=== PATIENT | male | born 1965 | race Caucasian/White ===

== ENCOUNTER → 2020-09-04 12:46 | Outpatient (CLI) | payer OTHER, SELFPAY ==
--- NOTE | 2020-09-04 12:54 | XR_ITS ---
PROCEDURE: XR WRIST RT MIN 3V CLINICAL INDICATION: bilateral wrist pain COMPARISON: No exams were available for comparison FINDINGS: No fracture or dislocation. No lytic or blastic change. There is normal mineralization. The joint spaces are well-preserved. No significant degenerative/arthritic changes. No erosive changes evident. Other findings:None. IMPRESSION: No acute findings. Dictated by: Galina Mireles 09/04/2020 14:55 Galina Mireles in [place] 09/04/2020 14:55
--- NOTE | 2020-09-04 12:54 | XR_ITS ---
PROCEDURE: XR WRIST LT MIN 3V CLINICAL INDICATION: bilateral wrist pain COMPARISON: No exams were available for comparison FINDINGS: No fracture or dislocation. No lytic or blastic change. There is normal mineralization. The joint spaces are well-preserved. No significant degenerative/arthritic changes. No erosive changes evident. Other findings:None. IMPRESSION: No acute findings. Dictated by: Galina Mireles 09/04/2020 14:54 Galina Mireles in [place] 09/04/2020 14:54
--- NOTE | 2020-09-04 14:14 | XR_ITS ---
PROCEDURE: XR CERVICAL SPINE 3V CLINICAL INDICATION: Shoulder/neck pain COMPARISON: No exams were available for comparison FINDINGS: Minor multilevel degenerative changes of the cervical spine, worse at C5-6 and C6-7 levels. Minor multilevel facet joint arthropathy. Vertebral body heights and alignment are maintained. The C1-2 alignment is within normal limits. Prevertebral soft tissues and the visualized lung apices are clear. IMPRESSION: No acute fractures or traumatic subluxation. Dictated by: Galina Mireles 09/04/2020 15:17 Galina Mireles in [place] 09/04/2020 15:17
== END ==
PROVIDERS: Visit Provider Orthopaedic Surgery
DX: M25.532 Pain in left wrist (principal); M25.531 Pain in right wrist; R20.2 Paresthesia of skin; M25.511 Pain in right shoulder; M25.512 Pain in left shoulder
CPT/HCPCS: 72040; 73110

== ENCOUNTER → 2020-09-28 10:22 | Outpatient (CLI) | payer OTHER, SELFPAY ==
[2020-09-28 11:05] LABS: Basophils % 0.4 % (0.1-2.0); Eosinophils # 0.2 K/mm3 (0.0-0.4); Eosinophils % 2.7 % (0.1-12.0); Hematocrit 46.5 % (42.0-52.0); Hemoglobin 15.5 g/dL (14.1-18.0); Lymphocytes # 1.8 K/mm3 (0.7-4.5); Lymphocytes % 21.4 % (10-50); Mean Corpuscular HGB Conc 33.4 g/dL (31.8-35.4); Mean Corpuscular Hemoglobin 28.9 pg (27.0-31.2); Mean Corpuscular Volume 86.6 fl (80-94); Mean Platelet Volume 7.7 fl (7.4-10.4); Monocytes # 0.5 K/mm3 (0.1-1.0); Monocytes % 6.1 % (1.7-9.3); Neutrophils # 5.9 K/mm3 (1.8-7.8); Neutrophils % 69.4 % (37.0-80.0); Platelet Count 198 K/mm3 (142-424); Red Blood Count 5.37 M/mm3 (4.60-6.20); Red Cell Distribution Width 13.4 % (11.5-17.5); White Blood Count 8.5 K/mm3 (4.8-10.8)
[2020-09-28 11:44] LABS: Chloride 102 mmol/L (98-107); Potassium 4.4 mmoL/L (3.5-5.1); Sodium 136 mmol/L (136-145)
[2020-09-28 11:47] LABS: Anion Gap 13.4 mEq/L (5-15); Blood Urea Nitrogen 12 mg/dl (9-20); Calcium 8.9 mg/dl (8.4-10.2); Carbon Dioxide 25 mmol/L (22.0-30.0); Estimated Glomerular Filt Rate 171 ml/min (>60); GFR (African American) 207 ML/MIN (>60); Glucose 329 mg/dl (74-100)
[2020-09-28 12:04] LABS: Coronavirus 19 IgG Antibody Positive (Negative); Coronavirus 19 IgM Antibody Negative (Negative)
== END ==
PROVIDERS: Visit Provider Orthopaedic Surgery
DX: Z01.818 Encounter for other preprocedural examination (principal); Z20.822 Contact with and (suspected) exposure to COVID-19; G56.03 Carpal tunnel syndrome, bilateral upper limbs; M79.609 Pain in unspecified limb; R20.2 Paresthesia of skin
CPT/HCPCS: 36415; 80048; 85025; 86328

== ENCOUNTER 2020-10-01 06:12 | Day surgery (SDC) | payer OTHER, SELFPAY ==
[2020-09-29 11:05] VITALS: BMI 24.4
[2020-10-01] VITALS (10 sets, daily range): BP systolic 102–143; BP diastolic 52–91; PULSE 78–97; RESP 16–18; TEMP 36.4–37.5; O2SAT 92–98
--- NOTE | 2020-10-01 07:28 | HMH.ANESCL ---
[facility] Anesthesia Checklist - Patient Identification Patient Identification: Arm Band - Structural Data Admitted From: Home Planned Operative Procedure/s: CTR Consent for Planned Operative Procedure(s) Verified: Yes - NPO Status Verified Time NPO: 00:00 - Additional verifications Anesthesia Reactions: No Hx Blood Transfusions: No Blood Transfusion Reaction: No - Airway Assessment C-Spine Mobility Assessed: Yes TMJ Mobility Assessed: Yes Dentition: Poor Dentition (Loose, missing) - Neurological Assessment Level of Consciousness: Awake Hx Seizures: No Numbness or tingling in extremities: No - Anesthesia Plan Anesthesia Risk discussed: Yes Anesthesia Plan: Verified ASA Class: II Anesthesia Type: General [facility] History I have reviewed the patient's past medical history: Yes Medical History: Denies:: Cancer, Diabetes Mellitus Type 1, Diabetes Mellitus Type 2 (Glucose: 342), Internal Pacemaker, MRSA, Seizures *Have you ever received a pneumonia vaccine?: No *Have you received a flu vaccine this season?: Yes Other Medical History: Denies: Blood Transfusion Reaction Anesthesia experience/problems:: None Other Surgeries: Yes: Colonoscopy. No: Pacemaker Amputation: No Fractures: No - *Social History Last grade of school completed: High school graduate Smoking Status: Current every day smoker Tobacco Type: cigarettes # Packs/Day (cigarettes): 1 Alcohol Intake: never Substance Use Type: denies use *Occupational Status:: unemployed Housing: house Household Members: none *Travel in the last 8 weeks: None Family Hx:: Unable to obtain
[2020-10-01 09:07] LABS: POC Glucose,Bedside 240 (70-110)
--- NOTE | 2020-10-01 09:42 | SW/DCPLANNER ---
RECEIVED A CALL FROM OUT PATIENT SURGERY REGARDING THIS PATIENT NEEDING TO SPEAK WITH SOMEONE.... I WENT DOWN TO RECOVERY AND PATIENT HAD MULTIPLE QUESTIONS ABOUT HIS MEDICAL CARD... HE STATED HE NEEDED TO BE RECERTED AND I HAVE CALLED ARYNA CARLSON, FINANCIAL COUNSELOR EXT [phone] TO GO DOWN TO OUT PATIENT RECOVERY AND EXPLAIN TO HIM WHAT HE NEEDS TO DO.. I DID TAKE HIM SOME PRESCRIPTION CARDS TO HAVE... HE DOESN'T NEED ANYTHING ELSE FROM ME...
[2020-10-01 09:55] LABS: Hemoglobin A1C 13.7 % (4.0-6.0)
--- NOTE | 2020-10-01 10:04 | HMH.OPNOTE ---
Date of procedure: 10/01/20 Pre-op Diagnosis:: L carpal tunnel syndrome Post-op Diagnosis:: L carpal tunnel syndrome Procedure performed:: L carpal tunnel release Surgeon:: Rebekah Srinivasan MD Kitchen Work Supervisor(s):: Demetra Santillan CLERK GENERAL OFFICE:: Other Anesthesia: LMA Estimated blood loss (mL): 5 Clinical Note:: 55-year-old [id number] gentleman with complaints of pain, numbness and tingling in bilateral hands, left worse than right. Symptoms began a few months ago and have been persistent. He says he has been told by physician at [facility] that he had a pinched C7 nerve root but was denied physical therapy or an MRI for this issue. He now reports pain in both hands and constant numbness. He is frequently dropping things and is having a hard time grasping objects. He has never injured either hand or his neck that he can recall, no previous surgeries on the neck or arms. He does report neck pain on occasion, though the hands are much worse. They are frequently waking him up at night, which is only been mildly improved with the use of braces. He is wearing a wrist brace while he sleeps. He is a smoker, denies any medical issues and does not take any medications. EMG?NCS of the bilateral upper extremities performed at [facility] on 09/15/2020 confirmed bilateral carpal tunnel syndrome, electrophysiologically moderate with evidence of chronic neuropathic changes of the left APB muscle. 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 He denies any medical comorbidities and does not have a primary care physician. No known history of diabetes or other endocrine disorders. He takes no daily home medications. Allergic to penicillin. He does not work and is disabled. I discussed treatment options regarding the carpal tunnel and the patient would like to proceed with surgery at this time. I discussed the risks of surgery with the patient, including bleeding, infection, neurovascular damage, wound healing complications, postoperative pain and stiffness, recurrence of carpal tunnel. The patient vocalized understanding of the risks of surgery and informed consent was obtained. Pre-operatively his glucose was >300 and he recalls having issues with his blood sugar in the past, and now reports numbness in both feet. The importance of obtaining a primary care physician was emphasized, and hemoglobin A1C ordered today. Operative findings:: median nerve compression at the L wrist Operative note:: The patient was identified in preoperative holding and the L wrist signed by myself. I reviewed the consent with the patient, answering all questions. He was then seen by anesthesia and the decision made to perform the surgery under general with an LMA. The patient was then taken to the OR and placed supine on the operative table with a hand table attached under the L upper extremity. Clindamycin 900mg was infused and general anesthesia induced. Non-sterile tourniquet was placed on the upper L arm, which was then prepped and draped in the usual sterile fashion. Timeout was performed, identifying the correct patient, correct procedure, and correct site. The procedure was begun by marking anatomic landmarks and planned surgical incision. The distal flexion crease was identified, and longitudinal line drawn from this point distally, extending in line with the radial border of the ring finger and ending at its intersection with Haq's cardinal line. The incision was approximately 2.5cm in length. The L arm was then exsanguinated with as Esmarch and the tourniquet inflated to 250mmHg. An incision was made over the pre-drawn incision using a 15 blade. After the skin was incised, tenotomy scissors were used to bluntly spread the subcutaneous tissue. Palmar fascia was encountered and incised in line with the incision. As this tissue was bl
--- NOTE | 2020-10-01 10:19 | HMH.ANESI ---
[facility] Anesthesia Record Part I Intake, IV Amount: 800 Estimated blood loss (mL): 2 Urine output (mL): 0 Blood Products used (#): none Blood Pressure: 102/55 SaO2: 93 Pulse Rate: 95 Respiratory Rate: 16 Temperature: 99.5 F Patient is:: Awake, Drowsy Stable to PACU at:: 09:04
[2020-10-01 12:04] LABS: POC Glucose,Bedside 342 (70-110)
[2020-10-01 12:04] LABS: POC Glucose,Bedside 254 (70-110)
--- NOTE | 2020-10-05 08:34 | HMH.ANESII ---
[facility] Anesthesia Record Part II Discharge Time: 09:19 Destination: Surgical Day Care (OP Surgery) PACU nurse assessment reviewed?: Yes Patient Condition:: Good Anesthesia Complications:: None Swallowing reflex intact?: Yes Cyanosis?: No Blood Pressure: 106/52 Pulse Rate: 86 Temperature: 99.5 F Mental Status: Alert & Oriented Pain level:: 0 Nausea and/or vomitting:: None Intake, IV Amount: 0
[2020-10-05 08:35] VITALS: BP 106/52; PULSE 86; TEMP 37.5
== END 2020-10-01 10:00 | disposition home or self-care (01) ==
LOC: OR 06:15
PROVIDERS: Visit Provider Orthopaedic Surgery
PROC: (CPT 64721; principal; 2020-10-01 07:30)
DX: G56.02 Carpal tunnel syndrome, left upper limb (principal)
CPT/HCPCS: 64721; 82962; 83036; 96374; J2405

== ENCOUNTER → 2020-10-20 13:43 | Outpatient (CLI) | payer OTHER, MEDICARE, SELFPAY ==
--- NOTE | 2020-10-20 13:44 | MR_ITS ---
PROCEDURE: MR CERVICAL SPINE WO CON CLINICAL INDICATION: Neck pain Lt arm pain, numbness, and tingling. Symptoms [id number]. No injury or trauma. Prior x-ray 09/04/20. COMPARISON: CR XR CERVICAL SPINE 3V from 09/04/2020 TECHNIQUE: Standard multiplanar multiecho sequences are performed without contrast. 3-D MIP and myelographic images are also rendered and reviewed FINDINGS: There is normal alignment. Craniocervical junction has an unremarkable appearance. C2-C3: Unremarkable. C3-C4: Bulging disc with a small broad-based central/right paracentral disc protrusion without impingement. C4-C5: There is prominence of the posterior longitudinal ligament with a broad based disc protrusion/disc osteophyte complex. This is causing canal stenosis and mild impingement upon the anterior aspect of the cord. Canal measures 10 mm at this level. There is mild flattening of the cord anteriorly and there is bilateral lateral recess narrowing. In addition there is mild bilateral foraminal narrowing from facet and uncovertebral hypertrophy. C5-C6: Degenerative disc disease with a broad based bulging disc and a small to medium size right paracentral disc osteophyte complex causing right lateral recess and foraminal narrowing along with canal stenosis of 10 mm. There is impingement with mild flattening upon the anterior right aspect of the cord from the disc osteophyte complex. C6-C7: 4 mm anterolisthesis of C6 with a small broad-based central and right paracentral disc osteophyte complex and a small left paracentral disc osteophyte complex with narrowing of the canal at 11 mm along with left lateral recess and left-sided foraminal narrowing. C7-T1: Mild degenerative disc disease with bulging disc somewhat eccentric toward the left with left-sided foraminal narrowing. IMPRESSION: 1. C3-C4: Bulging disc with a small broad-based central/right paracentral disc protrusion without impingement. 2. C4-C5: There is prominence of the posterior longitudinal ligament with a broad based disc protrusion/disc osteophyte complex. This is causing canal stenosis and mild impingement upon the anterior aspect of the cord. Canal measures 10 mm at this level. There is mild flattening of the cord anteriorly and there is bilateral lateral recess narrowing. In addition there is mild bilateral foraminal narrowing from facet and uncovertebral hypertrophy. 3. C5-C6: Degenerative disc disease with a broad based bulging disc and a small to medium size right paracentral disc osteophyte complex causing right lateral recess and foraminal narrowing along with canal stenosis of 10 mm. There is impingement with mild flattening upon the anterior right aspect of the cord from the disc osteophyte complex. 4. C6-C7: 4 mm anterolisthesis of C6 with a small broad-based central and right paracentral disc osteophyte complex and a small left paracentral disc osteophyte complex with narrowing of the canal at 11 mm along with left lateral recess and left-sided foraminal narrowing. 5. C7-T1: Mild degenerative disc disease with bulging disc somewhat eccentric toward the left with left-sided foraminal narrowing. Dictated by: Cruz Alvarado MD 10/21/2020 11:00 Cruz Alvarado MD in [place] 10/21/2020 11:00
== END ==
PROVIDERS: Visit Provider Orthopaedic Surgery
DX: M54.12 Radiculopathy, cervical region (principal)
CPT/HCPCS: 72141; 76376